=== PATIENT | male | born 2000 | race Caucasian/White ===

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

== ENCOUNTER 2020-04-19 07:45 | Inpatient (IN) | payer MEDICAID, OTHER, SELFPAY ==
[~2020-04-19] VITALS: Ht 167.6 cm; Wt 59.2 kg
[2020-04-19] MEDS ORDERED: NS 1,000 ML IV ONE (08:15)
[2020-04-19 08:16] LABS: HEMOGLOBIN 15.3 g/dl (13.5-17.5); MEAN CORPUSCULAR HEMOGLOBIN 29.9 pg (27.0-33.0); MEAN CORPUSCULAR HGB CONC 34.8 g/dl (32.0-36.5); MEAN CORPUSCULAR VOLUME 85.9 fl (80.0-96.0); PLATELET COUNT, AUTOMATED 263 10^3/uL (150-450); RED BLOOD COUNT 5.12 10^6/uL (4.30-6.10); WHITE BLOOD COUNT 22.4 10^3/uL (4.0-10.0)
[2020-04-19 08:51] LABS: ACETAMINOPHEN LEVEL < 2.0 UG/ML (10.0-30.0); ALBUMIN 4.9 GM/DL (3.2-5.2); ALT/SGPT 21 U/L (12-78); BILIRUBIN,DIRECT 0.2 MG/DL (0.0-0.2); BILIRUBIN,TOTAL 0.4 MG/DL (0.2-1.0); BLOOD UREA NITROGEN 17 MG/DL (7-18); CALCIUM LEVEL 9.4 MG/DL (8.5-10.1); CARBON DIOXIDE LEVEL 19 MEQ/L (21-32); CHLORIDE LEVEL 102 MEQ/L (98-107); CREATININE FOR GFR 1.44 MG/DL (0.70-1.30); ETHYL ALCOHOL (ETHANOL) < 0.003 % (0.000-0.010); GLUCOSE, FASTING 261 MG/DL (70-100); POTASSIUM SERUM 3.2 MEQ/L (3.5-5.1); SODIUM LEVEL 135 MEQ/L (136-145); THYROID STIMULATING HORMONE 0.823 uIU/ML (0.463-3.98); TOTAL PROTEIN 8.2 GM/DL (6.4-8.2)
--- NOTE | 2020-04-19 09:04 | REPVR ---
PROCEDURE INFORMATION: Exam: CT Head Without Contrast Exam date and time: 04/19/2020 8:49 AM Age: 19 years old Clinical indication: Altered mental status/memory loss TECHNIQUE: Imaging protocol: Computed tomography of the head without contrast. Radiation optimization: All CT scans at this facility use at least one of these dose optimization techniques: automated exposure control; mA and/or kV adjustment per patient size (includes targeted exams where dose is matched to clinical indication); or iterative reconstruction. COMPARISON: No relevant prior studies available. FINDINGS: Brain: Normal. No hemorrhage. Unremarkable white matter. No mass effect. Cerebral ventricles: No ventriculomegaly. Bones/joints: Unremarkable. No acute fracture. Paranasal sinuses: Visualized sinuses are unremarkable. No fluid levels. Mastoid air cells: Visualized mastoid air cells are well aerated. Soft tissues: Unremarkable. IMPRESSION: No acute intracranial abnormality. Electronically signed by: Shy Dennis On 04/19/2020 09:04:01 AM
[2020-04-19 10:39] LABS: AMPHETAMINES LEVEL URINE NEGATIVE (NEGATIVE); BARBITURATES URINE NEGATIVE (NEGATIVE); BENZODIAZEPINES URINE NEGATIVE (NEGATIVE); CANNABINOIDS URINE POSITIVE (NEGATIVE); COCAINE METABOLITE URINE POSITIVE (NEGATIVE); METHADONE URINE NEGATIVE (NEGATIVE); OPIATES URINE NEGATIVE (NEGATIVE); PHENCYCLIDINE URINE NEGATIVE (NEGATIVE)
[2020-04-19] MEDS ORDERED: ACETAMINOPHEN TAB 650MG DOSE (2X325MG) PO PRN (16:45)
[2020-04-19] MEDS ORDERED: traZODone 50 MG TAB PO PRN (16:45)
[2020-04-19] MEDS ORDERED: LORazepam 2 MG TAB PO PRN (16:45)
[2020-04-19] MEDS ORDERED: MOM 30ML SUSPENSION UDC PO PRN (16:45)
[2020-04-19] MEDS ORDERED: MAALOX 30 ML SUSP *UDC PO PRN (16:45)
[2020-04-19 17:25] VITALS: BP 129/81
[2020-04-19] MEDS: THIAMINE 100 MG TAB PO SCH (19:39)
--- NOTE | 2020-04-19 20:32 | ECGEPIP ---
[facility] - ED Test Date: 2020-04-19 Pat Name: GAB SAUCEDO Department: Room: - Gender: Male Annual Campaign Manager: ALFONSO : 2000 Requested By: GAB Nieto Order Number: [id number] Reading MD: Liliya Marquez Measurements Intervals [place] Rate: 109 P: 68 CT: 131 QRS: 58 QRSD: 96 T: 40 QT: 300 QTc: 405 Interpretive Statements SINUS TACHYCARDIA POSSIBLE RIGHT ATRIAL ENLARGEMENT POSSIBLE LEFT ATRIAL ENLARGEMENT ABNORMAL RHYTHM ECG Electronically Signed on 04-19-2020 20:32:19 EDT by Liliya Marquez
[2020-04-20 01:30] VITALS: BP 129/81
[2020-04-20 06:51] VITALS: BP 113/64
[2020-04-20 08:00] VITALS: BP 113/64
[2020-04-20] MEDS: FOLIC ACID 1 MG TAB PO SCH (09:00)
[2020-04-20] MEDS: MULTIVITAMINS/MINERALS THERAP 1 TAB PO SCH (09:00)
[2020-04-20] MEDS: NICOTINE 21MG/24HR 1 EA TRANSDERMAL TD SCH (09:00)
[2020-04-20] MEDS: THIAMINE 100 MG TAB PO SCH ×2 (09:00→22:22)
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
[2020-04-20] MEDS ORDERED: POTASSIUM CHLORIDE 10% LIQ 20 MEQ/15 ML UDC PO ONE (14:00)
[2020-04-20 16:00] VITALS: BP 119/67
[2020-04-20 17:44] VITALS: BP 119/67
[2020-04-20] MEDS ORDERED: CEPACOL LOZENGE PO PRN (18:00)
[2020-04-20 22:14] VITALS: BP 119/67
[2020-04-21 06:35] VITALS: BP 109/58
[2020-04-21 06:36] VITALS: BP 109/58
[2020-04-21 07:56] LABS: BLOOD UREA NITROGEN 16 MG/DL (7-18); CARBON DIOXIDE LEVEL 25 MEQ/L (21-32); CHLORIDE LEVEL 109 MEQ/L (98-107); GLUCOSE, FASTING 74 MG/DL (70-100); POTASSIUM SERUM 4.4 MEQ/L (3.5-5.1); SODIUM LEVEL 140 MEQ/L (136-145)
[2020-04-21] MEDS: NICOTINE 21MG/24HR 1 EA TRANSDERMAL TD SCH (09:00)
[2020-04-21] MEDS: THIAMINE 100 MG TAB PO SCH (10:29)
[2020-04-21] MEDS: MULTIVITAMINS/MINERALS THERAP 1 TAB PO SCH (10:29)
[2020-04-21] MEDS: FOLIC ACID 1 MG TAB PO SCH (10:30)
[2020-04-21 18:45] VITALS: BP 153/93
[2020-04-22] MEDS: NICOTINE 21MG/24HR 1 EA TRANSDERMAL TD SCH (09:00)
--- NOTE | 2020-04-22 09:49 | MHIPNPDOC ---
[facility] Progress Note Progress Note DATE OF SERVICE: 04/22/20 HPI: Foster presents today for his depression. The patient's met with today. He is somewhat bizarre and unusual. He doesn't answer much, and appears quite sullen. Hes been sitting at the desk in his room staring at the wall for quite some time before I came in. He continues to report that he doesn't want to try medications, but appears quite dysthymic. The staff report that at times he appears like he might be internally preoccupied. 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 Objective Appearance: Hygiene poor to fair. Affect: Constricted. Mood: Dysthymic. Sullen. Thought Content: No evidence of suicidal ideation. No thoughts of self harm. No evidence of delusions. No evidence of aggressive or homicidal ideation. Judgement: Poor to fair. Insight: Poor to fair. Assessment F33.9 Major depressive disorder, recurrent, unspecified F28 Other psychotic disorder not due to a substance or known physiological condition Plan Try Abilify 5mg. Patient does not want to take medications, but he does appear in need of them. Vital Signs Vital Signs Date Time Temp Pulse Resp B/P (MAP) Pulse Ox O2 Delivery O2 Flow Rate FiO2 04/21/20 18:45 98.2 85 16 153/93 (113) 100 Room Air Current Medications Current Medications Medications (Trade) Dose Ordered Sig/Frances Route PRN Reason Start Time Stop Time Status Last Admin Dose Admin Acetaminophen (Tylenol Tab) 650 mg Q6HP PRN PO HEADACHE or DISCOMFORT 04/19/20 16:45 Al Hydrox/Mg Hydrox/Simethicone (Mylanta) 30 ml Q4HP PRN PO HEARTBURN/INDIGESTION 04/19/20 16:45 Cetylpyridinium Chloride (Cepacol) 1 sandra Q2HP PRN PO SORE THROAT 04/20/20 18:00 04/20/20 17:59 Folic Acid (Folic Acid) 1 mg DAILY PO 04/20/20 09:00 04/21/20 17:18 DC 04/21/20 10:30 Home Med (Med Rec Complete!) ASDIRECTED XX 04/19/20 16:45 04/19/20 16:48 DC Lorazepam (Ativan) 2 mg ASDIRECTED PRN PO SEE PROTOCOL 04/19/20 16:45 04/21/20 17:18 DC Magnesium Hydroxide (Milk Of Magnesia) 30 ml DAILYPRN PRN PO CONSTIPATION 04/19/20 16:45 Multivitamins (Theragram-M) 1 tab DAILY PO 04/20/20 09:00 04/21/20 17:18 DC 04/21/20 10:29 Nicotine (Nicoderm Cq 21mg) 1 patch DAILY TD 04/20/20 09:00 Thiamine HCl (Thiamine HCl) 100 mg BID PO 04/19/20 17:00 04/21/20 17:18 DC 04/21/20 10:29 Trazodone HCl (Desyrel) 50 mg QHSP PRN PO INSOMNIA 04/19/20 16:45 Allergies Coded Allergies: No Known Drug Allergies (Verified Allergy, Unknown, 04/19/20) pt unaware of any allergies SINAN JERONIMO DO Apr 22, 2020 09:49
--- NOTE | 2020-04-22 13:25 | MHIPN ---
DATE: 04/21/2020 VITAL SIGNS: Blood pressure 109/58, pulse 60, temperature 97.1. CHIEF COMPLAINT: Feels a bit better. SUBJECTIVE: Seen for followup in the presence of staff. Says slept fairly well, has spoken with his mother, with his girlfriend, says that has gone okay. Feels a bit more relaxed. Says has cravings for nicotine but does not want a nicotine patch. MENTAL STATUS EXAMINATION: Neat, cooperative, less guarded, less irritable, affect restricted, he is coherent. Denies thoughts of harming himself or anyone else, currently no evidence of overt psychosis. Judgment and insight remain compromised. ASSESSMENT: Other specified depressive disorder. Cocaine use disorder. PLAN: Continue current care, observations, obtain collateral information. Consider using an antidepressant, despite drug use. Needs substance abuse treatment referral upon discharge as well. He will be seeing the assigned clinician tomorrow, and further recommendations will be made. ROSANNE
[2020-04-22 16:57] VITALS: BP 112/63
[2020-04-23 06:42] VITALS: BP 142/60
[2020-04-23] MEDS: NICOTINE 21MG/24HR 1 EA TRANSDERMAL TD SCH (09:00)
--- NOTE | 2020-04-23 13:31 | MHIPNPDOC ---
[facility] Progress Note Progress Note DATE OF SERVICE: 04/23/20 Subjective HPI: Foster was met with today. He reports that he doesnt want to try medications and otherwise is interested in going. Hes been engaged mildly, but somewhat ambivalent about going to groups. He asked multiple times about going and has been isolative, however, in terms of concerning behavior is observed. Objective Appearance: Fair Hygiene. Mood: Mildly dysthymic. Constricted. Speech: Normal volume. Normal rate. Spontaneous and Fluid. Cognition: Alert, Attentive, and Oriented to person, place, time. Grossly intact. Thought Form: Linear and goal directed. Thought Content: No evidence of delusions. No evidence of aggressive or homicidal ideation. No thoughts of self harm. No evidence of suicidal ideation. Judgement: Poor to fair. Insight: Poor to fair. 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 Getting treatment over objection is highly unlikely in his case at this time, unless significant changes are observed. Vital Signs Vital Signs Date Time Temp Pulse Resp B/P (MAP) Pulse Ox O2 Delivery O2 Flow Rate FiO2 04/23/20 06:42 98.1 88 16 142/60 (87) 04/21/20 18:45 100 Room Air Current Medications Current Medications Medications (Trade) Dose Ordered Sig/Frances Route PRN Reason Start Time Stop Time Status Last Admin Dose Admin Acetaminophen (Tylenol Tab) 650 mg Q6HP PRN PO HEADACHE or DISCOMFORT 04/19/20 16:45 Al Hydrox/Mg Hydrox/Simethicone (Mylanta) 30 ml Q4HP PRN PO HEARTBURN/INDIGESTION 04/19/20 16:45 Aripiprazole (AbiLIFY) 5 mg QHS PO 04/22/20 21:00 Cetylpyridinium Chloride (Cepacol) 1 sandra Q2HP PRN PO SORE THROAT 04/20/20 18:00 04/20/20 17:59 Folic Acid (Folic Acid) 1 mg DAILY PO 04/20/20 09:00 04/21/20 17:18 DC 04/21/20 10:30 Home Med (Med Rec Complete!) ASDIRECTED XX 04/19/20 16:45 04/19/20 16:48 DC Lorazepam (Ativan) 2 mg ASDIRECTED PRN PO SEE PROTOCOL 04/19/20 16:45 04/21/20 17:18 DC Magnesium Hydroxide (Milk Of Magnesia) 30 ml DAILYPRN PRN PO CONSTIPATION 04/19/20 16:45 Multivitamins (Theragram-M) 1 tab DAILY PO 04/20/20 09:00 04/21/20 17:18 DC 04/21/20 10:29 Nicotine (Nicoderm Cq 21mg) 1 patch DAILY TD 04/20/20 09:00 Thiamine HCl (Thiamine HCl) 100 mg BID PO 04/19/20 17:00 04/21/20 17:18 DC 04/21/20 10:29 Trazodone HCl (Desyrel) 50 mg QHSP PRN PO INSOMNIA 04/19/20 16:45 Allergies Coded Allergies: No Known Drug Allergies (Verified Allergy, Unknown, 04/19/20) pt unaware of any allergies SINAN JERONIMO DO Apr 23, 2020 13:30
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
[2020-04-23 16:30] VITALS: BP 125/90
[2020-04-24 06:43] VITALS: BP 94/50
[2020-04-24] MEDS: NICOTINE 21MG/24HR 1 EA TRANSDERMAL TD SCH (09:00)
--- NOTE | 2020-04-24 10:24 | MHDSPDOC ---
[facility] Discharge Summary Discharge Summary DATE OF ADMISSION: Apr 19, 2020 at 16:32 DATE OF DISCHARGE: Apr 24, 2020 at 16:20 DISCHARGE DIAGNOSES: F33.9 Major depressive disorder, recurrent, unspecified CONSULTANTS INVOLVED:[ None (basic hospitalist screening)] REASON FOR ADMISSION & TREATMENT AND PROGRESS ON THE UNIT : The patient was admitted to the inpatient mental health unit reportedly after making concerning statements. He came into the unit and was observed. After observation, he did have a mildly dysthymic affect, and was somewhat isolative, but no other aspects could be gauged that would create a difficulty in discharging him. Theres a paucity of information to continue to hold him as he requested to be discharged, and otherwise had no behavioral problems even with my emphasis that medication be helpful, he was still not interested. He did not want to try medications. Patient was offered Abilify, but he declined. DISCHARGE ASSESSMENTstable Legal status considerations: The patient at the time of discharge did not meet criteria for involuntary admission/extension due to having a [normal] mental status exam, [fair] insight into the situation, They are engaged in the discharge process, as well as being friendly and amenable in behavioral control and havent been engaging in any observed concerning behavior or ideation recently. They decline voluntary extension/admission at this time and must be discharged in good rolly, as Im unable to make a case for holding the patient against their will. They may have historical risk factors of admissions and other interactions with psychiatry however, those are not modifiable from a clinical perspective. The patient will need to be discharged in good rolly. MENTAL STATUS EXAMINATION ON DISCHARGE: [General: Well dressed with good hygiene Speech: Spontaneous and fluid Thought processes: Linear and logical Thought content: Future orientated Abstract reasoning, and computation: Intact Description of associations: Intact Description of abnormal or psychotic thoughts:Denies any suicidal or homicidal ideation. Denies any auditory or visual hallucinations. Does not appear to be responding to internal stimuli. Does not appear to be endorsing any bizarre or paranoid ideation. Judgment: fair Insight: fair Orientation: Alert and orientated 3 Recent and remote memory: Intact Attention span and concentration: Intact Fund of knowledge: Adequate Mood: "okay" Affect: Euthymic with a full range] PLAN/FOLLOWUP ARRANGEMENTS: Follow up appointments made (PCP and MH in 5 days of D/C date) and safety plan completed. Safety Planning aspects completed prior to discharge [RN reviewed crisis hotline information and other aspects to empower patient to access care in interim before next appointment.] The amount of time spent in the coordination of care for this patient was approximately 30 minutes. Vital Signs/I&Os Vital Signs Date Time Temp Pulse Resp B/P (MAP) Pulse Ox O2 Delivery O2 Flow Rate FiO2 04/24/20 06:43 96.6 59 16 94/50 (65) 04/21/20 18:45 100 Room Air Medications Scheduled Nicotine (Nicotine Patch) 21 Mg Patch.td24, 1 PATCH TD DAILY for tobacco for 30 Days, #30 Allergies Coded Allergies: No Known Drug Allergies (Verified Allergy, Unknown, 04/19/20) pt unaware of any allergies SINAN JERONIMO DO Apr 24, 2020 10:24
[2020-04-24] MEDS ORDERED: NICO21PAT TD (11:05)
== END 2020-04-24 16:20 | disposition home or self-care (01) | DRG 751 ==
LOC: M ED 07:45 → M ED INP 16:32 → M PSY 17:14
PROVIDERS: ADMIT Psychiatry & Neurology Addiction Medicine; ATTEND Psychiatry & Neurology Addiction Medicine
DX: F33.9 Major depressive disorder, recurrent, unspecified (principal); F17.210 Nicotine dependence, cigarettes, uncomplicated; E87.6 Hypokalemia; D72.829 Elevated white blood cell count, unspecified; N17.9 Acute kidney failure, unspecified

== ENCOUNTER → 2020-08-23 | Outpatient (CLI) | payer OTHER ==
[~2020-08-23] MED LIST: NICO21PAT TD
== END ==
LOC: M OUTALCOH 07:59
PROVIDERS: ATTEND Psychiatry & Neurology Psychiatry
DX: F15.20 Other stimulant dependence, uncomplicated (principal); F10.20 Alcohol dependence, uncomplicated; F12.20 Cannabis dependence, uncomplicated

== ENCOUNTER → 2020-09-25 | Outpatient (RCR) | payer OTHER | LOC: M OUTALCOH 08-27 13:15 | PROVIDERS: ATTEND Psychiatry & Neurology Psychiatry | DX: F15.20 Other stimulant dependence, uncomplicated (principal); F10.20 Alcohol dependence, uncomplicated; F12.20 Cannabis dependence, uncomplicated; F17.200 Nicotine dependence, unspecified, uncomplicated | CPT/HCPCS: 90832; 90834; H0038 ==

== ENCOUNTER → 2020-10-25 | Outpatient (RCR) | payer OTHER | LOC: M OUTALCOH 09-27 08:45 | PROVIDERS: ATTEND Psychiatry & Neurology Psychiatry | DX: F15.20 Other stimulant dependence, uncomplicated (principal); F10.20 Alcohol dependence, uncomplicated; F12.20 Cannabis dependence, uncomplicated; F17.200 Nicotine dependence, unspecified, uncomplicated | CPT/HCPCS: 90834; H0038 ==

== ENCOUNTER 2020-11-11 13:02 | Outpatient (RCR) | payer OTHER | END 2020-11-25 | LOC: M OUTALCOH 13:02 | PROVIDERS: ATTEND Psychiatry & Neurology Psychiatry | DX: F15.20 Other stimulant dependence, uncomplicated (principal); F10.20 Alcohol dependence, uncomplicated; F12.20 Cannabis dependence, uncomplicated; F17.200 Nicotine dependence, unspecified, uncomplicated ==

== ENCOUNTER → 2021-05-30 | Outpatient (CLI) | payer OTHER | LOC: M OUTALCOH 08:08 | PROVIDERS: ATTEND Psychiatry & Neurology Psychiatry | DX: F15.20 Other stimulant dependence, uncomplicated (principal); F10.20 Alcohol dependence, uncomplicated; F12.20 Cannabis dependence, uncomplicated ==

== ENCOUNTER 2021-06-11 14:29 | Outpatient (RCR) | payer OTHER | END 2021-06-27 | LOC: M OUTALCOH 14:29 | PROVIDERS: ATTEND Psychiatry & Neurology Psychiatry | DX: F12.20 Cannabis dependence, uncomplicated (principal) ==

== ENCOUNTER 2022-01-14 20:36 | Inpatient (IN) | payer OTHER ==
[~2022-01-14] VITALS: Ht 167.6 cm; Wt 65.0 kg
[2022-01-14 21:28] LABS: HEMATOCRIT 47.4 % (42.0-52.0); HEMOGLOBIN 16.1 g/dl (13.5-17.5); MEAN CORPUSCULAR HEMOGLOBIN 30.7 pg (27.0-33.0); MEAN CORPUSCULAR VOLUME 90.3 fl (80.0-96.0); PLATELET COUNT, AUTOMATED 247 10^3/uL (150-450); RED BLOOD COUNT 5.25 10^6/uL (4.30-6.10); WHITE BLOOD COUNT 7.8 10^3/uL (4.0-10.0)
[2022-01-14 22:03] LABS: ACETAMINOPHEN LEVEL < 2.0 UG/ML (10.0-30.0); ALBUMIN 5.1 GM/DL (3.2-5.2); ALT/SGPT 24 U/L (12-78); BILIRUBIN,DIRECT 0.1 MG/DL (0.0-0.2); BILIRUBIN,TOTAL 0.5 MG/DL (0.2-1.0); BLOOD UREA NITROGEN 15 MG/DL (7-18); CARBON DIOXIDE LEVEL 28 MEQ/L (21-32); CHLORIDE LEVEL 105 MEQ/L (98-107); CREATININE FOR GFR 1.07 MG/DL (0.70-1.30); ETHYL ALCOHOL (ETHANOL) < 0.003 % (0.000-0.010); GLOMERULAR FILTRATION RATE > 60.0 (>60); GLUCOSE, FASTING 106 MG/DL (70-100); POTASSIUM SERUM 3.8 MEQ/L (3.5-5.1); SALICYLATE LEVEL < 1.7 MG/DL (5.0-30.0); SODIUM LEVEL 141 MEQ/L (136-145); TOTAL PROTEIN 8.4 GM/DL (6.4-8.2)
[2022-01-14 22:25] LABS: RSV AMPLIFICATION NEGATIVE (NEGATIVE)
[2022-01-14 22:35] LABS: AMPHETAMINES LEVEL URINE NEGATIVE (NEGATIVE); BARBITURATES URINE NEGATIVE (NEGATIVE); BENZODIAZEPINES URINE NEGATIVE (NEGATIVE); CANNABINOIDS URINE POSITIVE (NEGATIVE); COCAINE METABOLITE URINE NEGATIVE (NEGATIVE); METHADONE URINE NEGATIVE (NEGATIVE); OPIATES URINE NEGATIVE (NEGATIVE); PHENCYCLIDINE URINE NEGATIVE (NEGATIVE)
[2022-01-15] MEDS ORDERED: HOME MED LIST COMPLETE! XX SCH (09:45)
[2022-01-15] MEDS ORDERED: NICOTINE 21MG/24HR 1 EA TRANSDERMAL TD ONE (20:05)
[2022-01-15] MEDS ORDERED: LORazepam 2 MG TAB PO STA (21:20)
[2022-01-16] MEDS ORDERED: MOM 30ML SUSPENSION UDC PO PRN (13:10)
[2022-01-16] MEDS ORDERED: diphenhydrAMINE 25MG CAP PO PRN (13:10)
[2022-01-16] MEDS ORDERED: MAALOX 30 ML SUSP *UDC PO PRN (13:10)
[2022-01-16] MEDS: NICOTINE 21MG/24HR 1 EA TRANSDERMAL TD SCH (16:59)
[2022-01-17 06:50] VITALS: BP 122/81
[2022-01-17] MEDS: NICOTINE 21MG/24HR 1 EA TRANSDERMAL TD SCH (08:53)
[2022-01-17 17:38] VITALS: BP 146/89
[2022-01-18] MEDS: NICOTINE 21MG/24HR 1 EA TRANSDERMAL TD SCH (10:12)
[2022-01-18 18:00] VITALS: BP 147/74
[2022-01-19 06:30] VITALS: BP 140/86
[2022-01-19] MEDS: NICOTINE 21MG/24HR 1 EA TRANSDERMAL TD SCH (09:18)
[2022-01-19] MEDS: SERTRALINE HCL 25 MG TABLET PO SCH (13:13)
[2022-01-19 18:00] VITALS: BP 138/72
[2022-01-20 06:22] VITALS: BP 115/69
[2022-01-20] MEDS: SERTRALINE HCL 25 MG TABLET PO SCH (08:21)
[2022-01-20] MEDS: NICOTINE 21MG/24HR 1 EA TRANSDERMAL TD SCH ×2 (08:22→14:02)
[2022-01-20] MEDS ORDERED: ARIPiprazole 2 MG TAB PO SCH ×2 (21:00)
[2022-01-21 06:23] VITALS: BP 145/77
[2022-01-21] MEDS: NICOTINE 21MG/24HR 1 EA TRANSDERMAL TD SCH (08:55)
[2022-01-21] MEDS: SERTRALINE HCL 25 MG TABLET PO SCH (08:55)
[2022-01-21 18:19] VITALS: BP 152/87
[2022-01-22 06:43] VITALS: BP 133/70
[2022-01-22] MEDS: SERTRALINE HCL 25 MG TABLET PO SCH (08:53)
[2022-01-22] MEDS: NICOTINE 21MG/24HR 1 EA TRANSDERMAL TD SCH (08:53)
[2022-01-22 18:24] VITALS: BP 118/64
[2022-01-22] MEDS: ARIPiprazole 15 MG TAB (AbiLIFY) PO SCH (19:53)
[2022-01-23 06:50] VITALS: BP 147/89
[2022-01-23] MEDS: SERTRALINE HCL 50 MG TAB PO SCH (09:18)
[2022-01-23] MEDS: NICOTINE 21MG/24HR 1 EA TRANSDERMAL TD SCH (09:19)
[2022-01-23 18:30] VITALS: BP 148/81
[2022-01-23] MEDS: ARIPiprazole 15 MG TAB (AbiLIFY) PO SCH (20:05)
[2022-01-24 06:46] VITALS: BP 134/82
[2022-01-24] MEDS: NICOTINE 21MG/24HR 1 EA TRANSDERMAL TD SCH (08:08)
[2022-01-24] MEDS: SERTRALINE HCL 50 MG TAB PO SCH (08:08)
[2022-01-24] MEDS ORDERED: ARIPiprazole MONOHYDRATE 400 MG INJ (ABILIFY)(FREE PSY INPT ONLY) IM ONE (11:00)
[2022-01-24 18:00] VITALS: BP 110/86
[2022-01-24] MEDS: ARIPiprazole 15 MG TAB (AbiLIFY) PO SCH (20:35)
[2022-01-25 07:17] VITALS: BP 144/84
[2022-01-25] MEDS: SERTRALINE HCL 50 MG TAB PO SCH (09:07)
[2022-01-25] MEDS: NICOTINE 21MG/24HR 1 EA TRANSDERMAL TD SCH (09:07)
[2022-01-25 18:00] VITALS: BP 130/96
[2022-01-25] MEDS: ARIPiprazole 15 MG TAB (AbiLIFY) PO SCH (19:50)
[2022-01-26 06:49] VITALS: BP 132/76
[2022-01-26] MEDS: SERTRALINE HCL 50 MG TAB PO SCH (08:00)
[2022-01-26] MEDS: NICOTINE 21MG/24HR 1 EA TRANSDERMAL TD SCH (08:01)
[2022-01-26] MEDS ORDERED: NICO21PAT TD (12:05)
[2022-01-26] MEDS ORDERED: SERT50TA29 PO (12:05)
[2022-01-26] MEDS ORDERED: ABIL1INJ2 IM (12:05)
[2022-01-26] MEDS ORDERED: ABIL1TAB12 PO (12:05)
== END 2022-01-26 16:27 | disposition home or self-care (01) | DRG 897 ==
LOC: M ED 20:36 → M ED INP 01-16 13:08 → M PSY 01-16 16:42
PROVIDERS: ADMIT Student in an Organized Health Care Education/Training Program; ATTEND Student in an Organized Health Care Education/Training Program
DX: F19.959 Other psychoactive substance use, unspecified with psychoactive substance-induced psychotic disorder, unspecified (principal); F17.210 Nicotine dependence, cigarettes, uncomplicated; Z20.822 Contact with and (suspected) exposure to COVID-19; F41.1 Generalized anxiety disorder; F32.A Depression, unspecified; Z56.0 Unemployment, unspecified

== ENCOUNTER → 2023-02-17 | Outpatient (CLI) | payer OTHER ==
[~2023-02-17] MED LIST changes: +ABIL1INJ2 IM; +ABIL1TAB12 PO; +SERT50TA29 PO
== END ==
LOC: M OUTALCOH 07:28
PROVIDERS: ATTEND Psychiatry & Neurology Psychiatry
DX: F10.10 Alcohol abuse, uncomplicated (principal)

== ENCOUNTER 2024-01-16 15:51 | Emergency (ER) | payer OTHER ==
[2024-01-16 16:48] LABS: HEMATOCRIT 47.4 % (42.0-52.0); HEMOGLOBIN 16.2 g/dl (13.5-17.5); MEAN CORPUSCULAR HEMOGLOBIN 30.6 pg (27.0-33.0); MEAN CORPUSCULAR HGB CONC 34.2 g/dl (32.0-36.5); MEAN CORPUSCULAR VOLUME 89.6 fl (80.0-96.0); PLATELET COUNT, AUTOMATED 232 10^3/uL (150-450); RED BLOOD COUNT 5.29 10^6/uL (4.30-6.10); WHITE BLOOD COUNT 7.4 10^3/uL (4.0-10.0)
[2024-01-16 17:11] LABS: BARBITURATES URINE NEGATIVE (NEGATIVE)
[2024-01-16 17:13] LABS: AMPHETAMINES LEVEL URINE NEGATIVE (NEGATIVE); BENZODIAZEPINES URINE NEGATIVE (NEGATIVE); COCAINE METABOLITE URINE NEGATIVE (NEGATIVE); METHADONE URINE NEGATIVE (NEGATIVE); OPIATES URINE NEGATIVE (NEGATIVE); PHENCYCLIDINE URINE NEGATIVE (NEGATIVE)
[2024-01-16 17:15] LABS: CANNABINOIDS URINE POSITIVE (NEGATIVE)
[2024-01-16 17:17] LABS: ALBUMIN 4.9 G/DL (3.2-5.2); ALKALINE PHOSPHATASE 111 U/L (46-116); ALT/SGPT 28 U/L (7.0-40); AST/SGOT 13 U/L (<34); BILIRUBIN,DIRECT 0.2 MG/DL (<0.4); BILIRUBIN,TOTAL 0.5 MG/DL (0.3-1.2); BLOOD UREA NITROGEN 6 MG/DL (9-23); CARBON DIOXIDE LEVEL 20 MMOL/L (20-31); CHLORIDE LEVEL 112 MMOL/L (98-107); CREATININE FOR GFR 0.87 MG/DL (0.70-1.30); GLOMERULAR FILTRATION RATE > 60.0 (>60); GLUCOSE, FASTING 110 MG/DL (60-100); POTASSIUM SERUM 3.5 MMOL/L (3.5-5.1); SALICYLATE LEVEL < 3.0 MG/DL (<30); SODIUM LEVEL 146 MMOL/L (136-145); THYROID STIMULATING HORMONE 1.241 uIU/ML (0.55-4.78); TOTAL PROTEIN 7.6 G/DL (5.7-8.2)
[2024-01-16] MEDS ORDERED: HOME MED LIST COMPLETE! XX SCH (19:30)
[2024-01-16] MEDS: LORazepam 2 MG/ML 1ML VIAL IM ONE (20:06)
[2024-01-16] MEDS: diphenhydrAMINE 50MG/ML VIAL IM ONE (20:06)
[2024-01-16] MEDS: HALOPERIDOL LACTATE 5MG/ML VIAL IM ONE (20:06)
[2024-01-17 10:44] VITALS: BP 128/74; TEMP 98.6; O2SAT 99
== END 2024-01-17 10:58 | disposition home or self-care (01) ==
LOC: M ED 15:51
DX: F10.129 Alcohol abuse with intoxication, unspecified (principal); F17.290 Nicotine dependence, other tobacco product, uncomplicated
CPT/HCPCS: 80048; 80076; 80143; 80307; 82077; 84443; 85027; 96372; 99285; J1200; J1630; J2060

== ENCOUNTER 2024-02-12 18:02 | Inpatient (IN) | payer OTHER ==
[~2024-02-12] VITALS: Ht 165.1 cm; Wt 75.0 kg
[2024-02-12] MEDS ORDERED: HOME MED LIST COMPLETE! XX SCH (20:40)
[2024-02-12 21:41] LABS: AMPHETAMINES LEVEL URINE NEGATIVE (NEGATIVE); BARBITURATES URINE NEGATIVE (NEGATIVE); BENZODIAZEPINES URINE NEGATIVE (NEGATIVE); COCAINE METABOLITE URINE NEGATIVE (NEGATIVE); METHADONE URINE NEGATIVE (NEGATIVE)
[2024-02-12 21:42] LABS: OPIATES URINE NEGATIVE (NEGATIVE); PHENCYCLIDINE URINE NEGATIVE (NEGATIVE)
[2024-02-12 21:48] LABS: CANNABINOIDS URINE POSITIVE (NEGATIVE)
[2024-02-12] MEDS: HALOPERIDOL LACTATE 5MG/ML VIAL IM ONE (21:59)
[2024-02-12] MEDS: LORazepam 2 MG/ML 1ML VIAL IM ONE (21:59)
[2024-02-12 23:37] LABS: HEMATOCRIT 42.7 % (42.0-52.0); HEMOGLOBIN 14.6 g/dl (13.5-17.5); MEAN CORPUSCULAR HEMOGLOBIN 31.4 pg (27.0-33.0); MEAN CORPUSCULAR HGB CONC 34.2 g/dl (32.0-36.5); MEAN CORPUSCULAR VOLUME 91.8 fl (80.0-96.0); PLATELET COUNT, AUTOMATED 228 10^3/uL (150-450); RED BLOOD COUNT 4.65 10^6/uL (4.30-6.10); WHITE BLOOD COUNT 7.3 10^3/uL (4.0-10.0)
[2024-02-12 23:56] LABS: ETHYL ALCOHOL (ETHANOL) < 0.003 % (0.000-0.010)
[2024-02-12 23:58] LABS: ALBUMIN 4.5 G/DL (3.2-5.2); ALKALINE PHOSPHATASE 95 U/L (46-116); ALT/SGPT 32 U/L (7.0-40); AST/SGOT 35 U/L (<34); BILIRUBIN,DIRECT 0.2 MG/DL (<0.4); BILIRUBIN,TOTAL 0.6 MG/DL (0.3-1.2); BLOOD UREA NITROGEN 7 MG/DL (9-23); CALCIUM LEVEL 9.2 MG/DL (8.5-10.1); CARBON DIOXIDE LEVEL 25 MMOL/L (20-31); CHLORIDE LEVEL 108 MMOL/L (98-107); CREATININE FOR GFR 0.77 MG/DL (0.70-1.30); GLOMERULAR FILTRATION RATE > 60.0 (>60); GLUCOSE, FASTING 90 MG/DL (60-100); POTASSIUM SERUM 4.5 MMOL/L (3.5-5.1); SALICYLATE LEVEL < 3.0 MG/DL (<30); SODIUM LEVEL 139 MMOL/L (136-145)
[2024-02-13 00:01] LABS: THYROID STIMULATING HORMONE 1.742 uIU/ML (0.55-4.78)
[2024-02-13] MEDS: LORazepam 2 MG/ML 1ML VIAL IM STA ×2 (07:48→22:37)
[2024-02-13] MEDS: OLANZapine ORAL DISINTEGRATING TAB 5MG PO ONE (20:00)
[2024-02-13] MEDS: IBUPROFEN 600MG TAB PO ONE (22:25)
[2024-02-13] MEDS: hydrOXYzine 50 MG TAB PO STA (22:37)
[2024-02-14] MEDS ORDERED: MOM 30ML SUSPENSION UDC PO PRN (13:00)
[2024-02-14] MEDS ORDERED: MAALOX 30 ML SUSP *UDC PO PRN (13:00)
[2024-02-14 16:10] VITALS: BP 134/78; TEMP 97; O2SAT 97
[2024-02-15 06:16] VITALS: BP 141/93; TEMP 97.9; O2SAT 100
[2024-02-15] MEDS: IBUPROFEN 400MG TAB PO PRN (12:06)
[2024-02-15 15:24] VITALS: BP 158/95; TEMP 96.3; O2SAT 98
[2024-02-15] MEDS: ACETAMINOPHEN TAB 650MG DOSE (2X325MG) PO PRN (16:02)
[2024-02-16 06:40] VITALS: BP 147/85; TEMP 97.2; O2SAT 99
[2024-02-16 16:40] VITALS: BP 144/82; TEMP 96.8; O2SAT 97
[2024-02-17 06:17] VITALS: BP 144/78; TEMP 96.1; O2SAT 98
[2024-02-17 17:13] VITALS: BP 147/88; TEMP 97.4; O2SAT 96
[2024-02-17] MEDS: traZODone 50 MG TAB PO PRN (22:50)
[2024-02-17] MEDS: diphenhydrAMINE 25MG CAP PO PRN (22:50)
[2024-02-18 06:37] VITALS: BP 151/80; TEMP 97.8; O2SAT 96
== END 2024-02-18 16:13 | disposition home or self-care (01) | DRG 897 ==
LOC: M ED 18:02 → M ED INP 02-14 12:56 → M PSY 02-14 14:42
PROVIDERS: ADMIT Psychiatry & Neurology Child & Adolescent Psychiatry; ATTEND Psychiatry & Neurology Child & Adolescent Psychiatry
DX: F19.959 Other psychoactive substance use, unspecified with psychoactive substance-induced psychotic disorder, unspecified (principal); F17.210 Nicotine dependence, cigarettes, uncomplicated; F41.1 Generalized anxiety disorder; F32.A Depression, unspecified; Z56.0 Unemployment, unspecified

== ENCOUNTER → 2024-06-23 | Outpatient (REF) | payer OTHER ==
[2024-06-23 18:36] LABS: Trichomonas vaginalis (AMP) NOT DETECTED (NEGATIVE)
[2024-06-23 18:52] LABS: ALBUMIN 4.1 G/DL (3.2-5.2); ALKALINE PHOSPHATASE 73 U/L (40-129); ALT/SGPT 41 U/L (7.0-40); AST/SGOT 22 U/L (<34); BILIRUBIN,TOTAL 0.4 MG/DL (0.3-1.2); BLOOD UREA NITROGEN 14 MG/DL (9-23); CALCIUM LEVEL 9.7 MG/DL (8.5-10.1); CARBON DIOXIDE LEVEL 30 MMOL/L (20-31); CHLORIDE LEVEL 103 MMOL/L (98-107); CREATININE FOR GFR 0.69 MG/DL (0.70-1.30); GLOMERULAR FILTRATION RATE > 60.0 (>60); GLUCOSE, FASTING 88 MG/DL (60-100); POTASSIUM SERUM 4.4 MMOL/L (3.5-5.1); SODIUM LEVEL 139 MMOL/L (136-145); TOTAL PROTEIN 7.4 G/DL (5.7-8.2)
[2024-06-23 19:00] LABS: GC DNA AMPLIFICATION NEGATIVE (NEGATIVE)
[2024-06-23 19:08] LABS: TOTAL 25(OH) VITAMIN D 10.9 NG/ML (20.0-100.0)
[2024-06-23 19:10] LABS: VITAMIN B12 LEVEL 284 PG/ML (211-911)
[2024-06-23 19:33] LABS: HIV 1&2 SCREEN NEGATIVE (NEGATIVE)
[2024-06-23 19:41] LABS: HEPATITIS C VIRUS ABY INDEX < 0.02 INDEX (<0.8)
[2024-06-23 19:43] LABS: FOLATE 11.9 NG/ML (>5.4)
== END ==
LOC: M LAB REF 16:09
PROVIDERS: ATTEND Physician Assistant
DX: G25.71 Drug induced akathisia (principal); E55.9 Vitamin D deficiency, unspecified; Z11.9 Encounter for screening for infectious and parasitic diseases, unspecified